=== PATIENT | male | born 1980 | race Caucasian/White ===

== ENCOUNTER 2020-08-17 13:43 | Observation (INO) ==
[2020-08-17] MEDS ORDERED: Aspirin 81 MG TAB.CHEW PO STA (14:08)
[2020-08-17 14:14] LABS: Basophils # 0.1 K/mcL (0.0-0.2); Basophils % 0.5 %; Eosinophils # 0.4 K/mcL (0.0-0.6); Eosinophils % 2.3 %; Hematocrit 48.9 % (37.5-50.1); Hemoglobin 16.5 g/dL (12.9-16.9); Immature Granulocytes % 0.3 % (0-4); Lymphocytes % 26.7 %; Mean Corpuscular HGB Conc 33.7 g/dL (31.6-35.5); Mean Corpuscular Volume 88.9 fL (83.0-100.0); Mean Platelet Volume 10.1 fL (9.4-12.4); Monocytes # 0.9 K/mcL (0.0-1.3); Monocytes % 5.7 %; Neutrophils # 9.8 K/mcL (1.6-8.9); Platelet Count 279 K/mcL (140-400); Red Cell Distribution Width 12.8 % (11.5-14.5); Segmented Neutrophils % 64.5 %; White Blood Count 15.1 K/mcL (4.3-11.1)
[2020-08-17 14:35] LABS: Alanine Aminotransferase 19 Units/L (7-52); Albumin 4.6 g/dL (3.5-5.7); Albumin/Globulin Ratio 1.5 (1.1-2.2); Alkaline Phosphatase 93 Units/L (34-104); Aspartate Amino Transferase 15 Units/L (13-39); BUN/Creatinine Ratio 10 (6-26); Bilirubin,Total 0.5 mg/dL (0.3-1.0); Blood Urea Nitrogen 9 mg/dL (6-20); Calcium 9.7 mg/dL (8.6-10.3); Carbon Dioxide 27 mEq/L (23-29); Chloride 104 mEq/L (98-107); Glucose 146 mg/dL (70-105); Osmolality,Calculated 287 (280-300); Potassium 3.9 mEq/L (3.5-5.1); Sodium 138 mEq/L (136-145); Total Protein 7.6 g/dL (6.4-8.9); Troponin I < 0.03 ng/mL (< 0.04); eGFR For African Americans > 60 (> 60); eGFR For Non-African Americans > 60 (> 60)
[2020-08-17] MEDS: Nitroglycerin 0.4 MG TAB.SUBL SL SCH (15:07)
[2020-08-17] MEDS ORDERED: *HR* Dextrose 50 % in Water (Vial) 50 ML VIAL IVP PRN (16:33)
[2020-08-17] MEDS ORDERED: Dextrose Gel 15 GM/37.5 ML TUBE PO PRN ×2 (16:33)
[2020-08-17] MEDS ORDERED: D5% in Water 1,000 ML IVC PRN (16:33)
[2020-08-17] MEDS ORDERED: Perflutren Lipid Microsphere 1.3 ML in 0.9 % Sodium Chloride 8.7 ML IVP PRN (16:34)
[2020-08-17] MEDS ORDERED: Acetaminophen 325 MG TABLET PO PRN (16:36)
[2020-08-17] MEDS ORDERED: Naloxone 0.4 MG/ML INJ IVP PRN (16:36)
[2020-08-17] MEDS ORDERED: Ondansetron 4 MG/2 ML VIAL IVP PRN (16:36)
[2020-08-17] MEDS ORDERED: Nitroglycerin 0.4 MG TAB.SUBL SL PRN (16:39)
[2020-08-17 17:13] LABS: Bilirubin,Direct 0.1 mg/dL (0.0-0.2); Bilirubin,Indirect 0.4 mg/dL (0.0-1.0)
[2020-08-17] MEDS ORDERED: Insulin LISPRO 300 UNITS/3 ML VIAL SUBQ SCH (21:00)
[2020-08-17] MEDS: Insulin LISPRO 300 UNITS/3 ML VIAL SUBQ SCH (21:14)
[2020-08-17] MEDS: *HR* Heparin 5,000 UNIT/ML VIAL SQ SCH (23:05)
[2020-08-18] MEDS: Insulin LISPRO 300 UNITS/3 ML VIAL SUBQ SCH ×2 (01:29→06:06)
[2020-08-18 02:25] LABS: Hematocrit 45.3 % (37.5-50.1); Mean Corpuscular HGB Conc 33.1 g/dL (31.6-35.5); Mean Corpuscular Volume 90.6 fL (83.0-100.0); Mean Platelet Volume 10.6 fL (9.4-12.4); Platelet Count 264 K/mcL (140-400); Red Cell Distribution Width 12.9 % (11.5-14.5); White Blood Count 12.1 K/mcL (4.3-11.1)
[2020-08-18 02:28] LABS: INR 1.1; Prothrombin Time 12.4 Seconds (9.4-12.1)
[2020-08-18 02:30] LABS: Activated Partial Thrombo Time 29.7 Seconds (26.0-36.0)
[2020-08-18 02:40] LABS: BUN/Creatinine Ratio 13 (6-26); Blood Urea Nitrogen 11 mg/dL (6-20); Calcium 8.9 mg/dL (8.6-10.3); Carbon Dioxide 26 mEq/L (23-29); Chloride 107 mEq/L (98-107); Chol/HDL Ratio 7.9 (0-4.9); Cholesterol 198 mg/dL (< 200); Glucose 197 mg/dL (70-105); HDL Cholesterol 25 mg/dL (40-59); LDL Cholesterol,Calculated 116 mg/dL (< 100); Osmolality,Calculated 291 (280-300); Potassium 3.7 mEq/L (3.5-5.1); Sodium 138 mEq/L (136-145); Triglycerides 285 mg/dL (< 150); eGFR For African Americans > 60 (> 60); eGFR For Non-African Americans > 60 (> 60)
[2020-08-18] MEDS: *HR* Heparin 5,000 UNIT/ML VIAL SQ SCH (06:06)
[2020-08-18] MEDS ORDERED: Regadenoson 0.4 MG/5 ML SYRINGE IVP ONE (06:39)
[2020-08-18] MEDS ORDERED: Insulin LISPRO 300 UNITS/3 ML VIAL SUBQ SCH (07:30)
[2020-08-18] MEDS ORDERED: Aspirin Enteric Coated 81 MG Tablet PO SCH (09:00)
[2020-08-18 11:03] VITALS: BP 122/74
== END 2020-08-18 14:30 | disposition home or self-care (01) ==
LOC: 3BNU 13:43 → EMEROOARM 13:43 → 3BNU 17:53
PROVIDERS: ADMIT Student in an Organized Health Care Education/Training Program; ATTEND Student in an Organized Health Care Education/Training Program